=== PATIENT | female | born 2000 | race Caucasian/White ===

== ENCOUNTER 2022-08-26 21:45 | Emergency (ER) | payer OTHER ==
[~2022-08-26] VITALS: Ht 160 cm; Wt 75.0 kg
[2022-08-26] MEDS ORDERED: GABA-1216 PO (22:07)
[2022-08-26] MEDS ORDERED: PERTUSS(ACELL),DIPH,TET VAC/PF 0.5 ML SYRINGE IM. ONE (23:45)
[2022-08-26] MEDS ORDERED: LIDOCAINE 1% 10 ML VIAL ID ONE (23:45)
[2022-08-27 00:24] VITALS: BP 122/64
== END 2022-08-27 00:26 | disposition home or self-care (01) ==
LOC: EMS 21:52
DX: S61.012A Laceration without foreign body of left thumb without damage to nail, initial encounter (principal); F41.9 Anxiety disorder, unspecified; W26.9XXA Contact with unspecified sharp object(s), initial encounter; Y93.E9 Activity, other interior property and clothing maintenance; Y92.89 Other specified places as the place of occurrence of the external cause; Y99.8 Other external cause status
CPT/HCPCS: 99283; 90715; 90471; 12001; J3490